=== PATIENT | male | born 1980 | race Caucasian/White ===

== ENCOUNTER 2020-12-28 14:14 | Emergency (ER) | payer OTHER ==
[~2020-12-28] VITALS: Ht 175.3 cm; Wt 54.0 kg
[2020-12-28] MEDS ORDERED: SERTRALINE20 MG/1 ML (15:29)
[2020-12-28] MEDS ORDERED: PROPRANOLOL HCL10 MG (15:30)
[2020-12-28] MEDS ORDERED: CLONAZEPAM1 MG (15:30)
== END 2020-12-28 19:44 | disposition home or self-care (01) ==
LOC: ER 14:14
DX: B34.9 Viral infection, unspecified (principal); D69.6 Thrombocytopenia, unspecified; Z20.822 Contact with and (suspected) exposure to COVID-19

== ENCOUNTER 2021-02-27 10:30 | Outpatient (CLI) | payer OTHER ==
[~2021-02-27 10:30] MED LIST: CLONAZEPAM1 MG; PROPRANOLOL HCL10 MG; SERTRALINE20 MG/1 ML
== END 2021-02-27 10:31 | disposition home or self-care (01) ==
LOC: PPH VACUNA 10:30
PROVIDERS: ATTEND Emergency Medicine Pediatric Emergency Medicine
DX: Z23 Encounter for immunization (principal)